=== PATIENT | male | born 1970 | race Two or more races ===

== ENCOUNTER 2024-06-07 19:42 | Emergency (ER) | payer OTHER ==
[~2024-06-07] VITALS: Ht 175.3 cm; Wt 91.6 kg
[2024-06-07] MEDS ORDERED: IBUP-1490 PO (20:26)
[2024-06-07] MEDS ORDERED: IBUPROFEN 600 MG TABLET ONE (20:36)
[2024-06-07] MEDS: IBUPROFEN 600 MG TABLET PO ONE (20:37)
[2024-06-07 20:50] VITALS: BP 142/88; TEMP 98.2; O2SAT 100
== END 2024-06-07 20:50 | disposition home or self-care (01) ==
LOC: ER 19:44
DX: S83.92XA Sprain of unspecified site of left knee, initial encounter (principal); Z88.0 Allergy status to penicillin; X50.1XXA Overexertion from prolonged static or awkward postures, initial encounter; Y93.89 Activity, other specified; Y92.89 Other specified places as the place of occurrence of the external cause; Y99.8 Other external cause status
CPT/HCPCS: A4606; A4663